=== PATIENT | female | born 1960 | race Caucasian/White ===

== ENCOUNTER 2017-06-14 14:24 | Emergency (ER) | payer OTHER ==
[~2017-06-14] VITALS: Ht 160 cm; Wt 54.5 kg
[2017-06-14 14:27] VITALS: BP 162/93; PULSE 79; RESP 17; TEMP 97.6; O2SAT 100
--- NOTE | 2017-06-14 15:45 | PD ---
HPI Chief Complaint: Injury Time Seen by Provider: 15:15 Travel History International Travel<30 days: No Contact w/Intl Traveler<30days: No Traveled to known affect area: No History of Present Illness HPI 56-year-old female presents to the emergency department complaining of right ankle pain. States she was walking up a ditch and had an extreme flexion injury. States currently her pain is located in the posterior aspect of the ankle and some of the Achilles portion. Patient denies numbness or tingling and does have full range of motion of her ankle however, she does have pain. Denies laxity. Stated she took Motrin with a significant relief of pain. She was concerned about fracture so she came to the emergency department stay. PFSH Past Medical History Hx Anticoagulant Therapy: No Cardiovascular Problems: No Chemotherapy: No Cerebrovascular Accident: No Diabetes: No Respiratory: No ?: Unknown : 3 Para: 3 Past Surgical History Section: Yes Hysterectomy: No Social History Alcohol Use: Yes (OCC) Tobacco Use: No Substance Use: No Allergies-Medications (Allergen,Severity, Reaction): Coded Allergies: No Known Allergies (Unverified , 06/14/17) Reported Meds & Prescriptions Reported Meds & Active Scripts Active No Active Prescriptions or Reported Medications Review of Systems Except as stated in HPI: all other systems reviewed are Neg Physical Exam Narrative GENERAL: Well-nourished, well-developed patient. SKIN: Focused skin assessment warm/dry. HEAD: Normocephalic. EYES: No scleral icterus. No injection or drainage. NECK: Supple, trachea midline. No JVD MUSCULOSKELETAL: No cyanosis, or edema. Right ankle- ecchymosis over the posterior aspect of bilateral malleolus, TTP over anterior talo fibular ligaments, negative anterior posterior drawer BACK: Nontender without obvious deformity. No CVA tenderness. NEUROLOGICAL: Awake and alert. Motor and sensory grossly within normal limits. Normal speech. PSYCHIATRIC: No delusional thought processes. No hallucinations. Data Data Last Documented VS Vital Signs Date Time Temp Pulse Resp B/P (MAP) Pulse Ox O2 Delivery O2 Flow Rate FiO2 06/14/17 16:35 06/14/17 14:27 97.6 79 17 100 Room Air Orders Orders Ankle, Complete ([id number]) (06/14/17 ) Ed Discharge Order (06/14/17 16:19) Splint Or Brace Apply/Monitor (06/14/17 16:19) Brace Ankle Stirrup (06/14/17 ) MDM Medical Decision Making Medical Screen Exam Complete: Yes Emergency Medical Condition: Yes Differential Diagnosis Right ankle fracture versus sprain versus strain versus Achilles rupture Narrative Course 56-year-old female presents to the emergency department complaining of right ankle pain. States she was walking up a ditch and had an extreme flexion injury. States currently her pain is located in the posterior aspect of the ankle and some of the Achilles portion. Patient denies numbness or tingling and does have full range of motion of her ankle however, she does have pain. Denies laxity. Stated she took Motrin with a significant relief of pain. She was concerned about fracture so she came to the emergency department stay. Vital signs stable Physical exam- TTP over into the ATF ligament and PTF ligament Ankle x-ray- no acute process Patient was discharged with Gary wrap or ankle brace as patient first. Continue Tylenol or Motrin per package instructions Advised to follow-up with primary care physician, orthopedics or podiatry. Return to the ED for worsening symptoms Diagnosis Primary Impression: Ankle sprain Qualified Codes: S93.491A - Sprain of other ligament of right ankle, initial encounter Referrals: Primary Care Physician Additional Instructions: Follow-up with your primary care physician Continue Motrin and Tylenol per package instructions Consider follow-up with orthopedics or podiatry Scripts No Active Prescriptions or Reported Meds Disposition: 01 DISCHARGE HOME Condition: Stable Laverne Sanchez Jun 14, 2017 15:45
--- NOTE | 2017-06-14 16:11 | RADRPT ---
EXAM DATE/TIME: 06/14/2017 15:50 [facility] COMPARISON: No previous studies available for comparison. INDICATIONS : Fall over a parking curb today. MEDICAL HISTORY : None. SURGICAL HISTORY : None. ENCOUNTER: Initial ACUITY: 1 day PAIN SCORE: 7/10 LOCATION: Right Ankle FINDINGS: There is a well-corticated ossicle inferior to the tip of the medial malleolus. Soft tissues are unre markable. No acute fractures are identified. CONCLUSION: No acute disease. Janes Duenas MD on June 14, 2017 at 16:09 Board Certified Radiologist. This report was verified electronically.
== END 2017-06-14 16:35 | disposition home or self-care (01) ==
LOC: NEPD 14:24
DX: S93.491A Sprain of other ligament of right ankle, initial encounter (principal); X50.1XXA Overexertion from prolonged static or awkward postures, initial encounter; Y93.01 Activity, walking, marching and hiking
CPT/HCPCS: 73610; 99283; L1906